=== PATIENT | male | born 1970 | race Caucasian/White ===

== ENCOUNTER 2019-11-10 20:00 | Outpatient (CLI) | payer MEDICAID, SELFPAY | END 2019-11-10 20:01 | disposition home or self-care (01) | LOC: SLEEP 11-11 10:08 | PROVIDERS: Visit Provider Nurse Practitioner Family | DX: G47.33 Obstructive sleep apnea (adult) (pediatric) (principal); G47.10 Hypersomnia, unspecified; Z68.41 Body mass index [BMI] 40.0-44.9, adult | CPT/HCPCS: 95810; 95811 ==

== ENCOUNTER → 2020-03-16 14:15 | Outpatient (BNVA) | payer MEDICAID, SELFPAY | PROVIDERS: Visit Provider Nurse Practitioner Family | DX: M54.2 Cervicalgia (principal); M47.812 Spondylosis without myelopathy or radiculopathy, cervical region | CPT/HCPCS: 72040 ==

== ENCOUNTER → 2020-04-27 13:45 | Outpatient (BNVA) | payer MEDICAID, SELFPAY | PROVIDERS: Visit Provider Nurse Practitioner Family | DX: M79.662 Pain in left lower leg (principal); S81.842A Puncture wound with foreign body, left lower leg, initial encounter; W28.XXXA Contact with powered lawn mower, initial encounter; Z68.41 Body mass index [BMI] 40.0-44.9, adult; F17.220 Nicotine dependence, chewing tobacco, uncomplicated | CPT/HCPCS: 73590 ==

== ENCOUNTER 2020-12-02 14:53 | Emergency (ER) | payer MEDICAID, SELFPAY ==
[2020-12-02 15:05] VITALS: BP 172/102; PULSE 84; RESP 20; TEMP 36.7; O2SAT 98; BMI 43.0
--- NOTE | 2020-12-02 15:23 | XR_ITS ---
WS: [id number] Cervical spine, 4 views, 12/02/2020 Clinical Data: left side neck and shoulder pain with ROM Comparison: Cervical spine, 03/16/2020. Findings: No compression fractures are seen. No subluxation is seen. There is disc space narrowing at C3-C4, C4-C5, C5-C6 and C6-C7. There is anterior longitudinal ligament and anterior spur formation f rom C3 to through C7. There is no prevertebral soft tissue swelling. The odontoid is unremarkable. Th e soft tissues of the neck and the lung apices are normal. XR/XR cervical spine 3V* [id number] Impression: 1. Mild degenerative disc narrowing from C3-C4 through C6-C7. 2. 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
--- NOTE | 2020-12-02 15:32 | ED_ITS ---
HPI - General Adult General: Chief complaint: General Medical Stated complaint: SHARP PAIN IN L SIDE NECK GOING TO L SHOULDER History of Present Illness: HPI narrative: Patient been having pain left side neck left shoulder the last few days. Hurts with range of motion denies any injury has a history of neck problems. Patient states the pain hurts worse in his left shoulder when he rotates his head to the right side hurts down to the bicep area at times also. Denies any tingling or numbness down extremities denies any shortness of breath chest pain or chest pressure. Onset (ago): day(s) Location: neck, left and upper extremity Radiation: non-radiation, neck and extremity Severity: mild Severity scale (1-10): 3 Quality: aching and sharp Pain Consistency: intermittent Relieving factors: immobilization Exacerbating factors: movement Associated symptoms: Reports no associated symptoms; Deny chest pain, dyspnea, headache(s), nausea, rash or vomiting Review of Systems Const: Denies: fever(s), chills or body aches Eyes: Denies: change in vision or blurry vision ENMT: Denies: throat pain or nasal congestion Card: Denies: chest pain or dyspnea on exertion Resp: Denies: dyspnea, productive cough or non-productive cough GI: Denies: abdominal pain, nausea or vomiting : Denies: difficulty urinating Musc: Reports: neck pain (Left side) and extremity pain (Left shoulder) Skin/Breast: Denies: rash Neuro: Denies: headache(s) Psych: Denies: anxiety or depression Kian/Lymph: Denies: easy bruising PFS ED PFSH: Social History (Updated 10/16/20 @ 17:56 by Tommy Foy LPN) Smoking and tobacco status: current every day smoker smokeless tobacco Alcohol intake: never Physical Exam Const: COMMON NORMALS: no acute distress, average body habitus and patient oriented x3 HENMT: COMMON NORMALS: normocephalic HEAD & SCALP: normal to inspection and normocephalic FACE & SINUS: normal facial exam Eye: COMMON NORMALS: conjunctivae normal GENERAL EYE: appearance normal, both eyes and all related structures CONJUNCTIVA: Yes conjunctivae normal Neck/C-Spine: COMMON NORMALS: no JVD Chest: COMMONS NORMALS: normal inspection of the chest Resp: COMMON NORMALS: normal respiratory effort and clear to auscultation bilaterally AUSCULTATION: clear to auscultation bilaterally Cardio: COMMON NORMALS: no JVD, regular rate and regular rhythm RATE: regular rate RHYTHM: regular rhythm GI: COMMON NORMALS: Normal to inspection, nondistended, normoactive bowel sounds present Extremity: COMMON NORMALS: normal to inspection NARRATIVE EXTREMITY EXAM: Pain with palpation to the left trapezius area left shoulder pain with range of motion. Hurts when he turns his head to the right makes it her left side. Neuro: COMMON NORMALS: patient oriented x3 Course Vital Signs: Vital signs: Vital Signs Temperature 98.1 F 12/02/20 15:05 Pulse Rate 84 12/02/20 15:05 Respiratory Rate 20 H 12/02/20 15:05 Blood Pressure 172/102 12/02/20 15:05 Pulse Oximetry 98 12/02/20 15:05 Discharge Plan Discharge Prescriptions: No Action atorvastatin 40 mg tablet 40 mg PO DAILY RF: 0 fluticasone propionate 50 mcg/actuation blister with device 1 inh INHALATION BID RF: 0 Flovent HFA 110 mcg/actuation HFA aerosol inhaler 2 puff INHALATION BID RF: 0 levocetirizine 5 mg tablet 5 mg PO DAILY RF: 0 losartan 100 mg tablet 100 mg PO DAILY RF: 0 cyclobenzaprine 10 mg tablet 10 mg PO .Once a day PRN (Reason: muscle spasm) Qty: 7 RF: 0 povidone-iodine [Betadine Swabsticks] 10 % swab 1 applic TOPICAL ONCE Qty: 1 RF: 0 bacitracin 500 unit/gram packet 1 applic TOPICAL ONCE Qty: 1 RF: 0 lidocaine (PF) 20 mg/mL (2 %) solution 20 mg Infiltration ONCE Qty: 2 RF: 0 amoxicillin-pot clavulanate [Augmentin] 875-125 mg tablet 1 tab PO BID 10 Days Qty: 20 RF: 0 Coding Level of Care Code ED Home Health Outreach Coordinator for Mariaelena Krishnamurthy
[2020-12-02] MEDS: ketorolac 60 mg/2 mL INJ IM (16:11)
[2020-12-02 16:22] VITALS: BP 132/77; PULSE 76; RESP 20; O2SAT 98
[2020-12-02 16:23] VITALS: BP 132/77; PULSE 76; RESP 20; O2SAT 98
== END 2020-12-02 16:28 | disposition home or self-care (01) ==
PROVIDERS: Emergency Provider Nurse Practitioner Family; PCP Nurse Practitioner Family
DX: M54.2 Cervicalgia (principal); F17.210 Nicotine dependence, cigarettes, uncomplicated
CPT/HCPCS: 72040; 96372; 99283; J1885

== ENCOUNTER 2022-07-13 10:59 | Outpatient (CLI) | payer MEDICAID, SELFPAY ==
--- NOTE | 2022-07-13 12:21 | XR_ITS ---
WS: [id number] Lumbar spine with flexion, extension, and neutral lateral, 07/13/2022 Clinical Data: BACK PAIN, LUMBAR Comparison: Lumbar spine, 07/13/2010. Findings: No compression fractures are seen. There is anterior subluxation of L4 and L5 of 0.2 cm. No disc spac e narrowing is seen. There is anterior osteophyte formation L1-L4. No limitation of motion or change in subluxation is seen. XR/XR lumbar spine f/e only [id number] Impression: 1. Osteoarthritis L1-L4. 2.. No limitation of motion or change in subluxation on flexion or extension. 3. Subluxation of 0.2 cm of L4 on L5.
== END 2022-07-13 11:00 | disposition home or self-care (01) ==
LOC: RAD 11:10
PROVIDERS: PCP Nurse Practitioner Family; Visit Provider Nurse Practitioner Family
DX: M47.816 Spondylosis without myelopathy or radiculopathy, lumbar region; S33.140A Subluxation of L4/L5 lumbar vertebra, initial encounter
CPT/HCPCS: 72120

== ENCOUNTER → 2022-07-24 13:05 | Outpatient (BNVA) | payer MEDICAID, SELFPAY | PROVIDERS: PCP Nurse Practitioner Family; Visit Provider Orthopaedic Surgery | DX: M43.16 Spondylolisthesis, lumbar region (principal) | CPT/HCPCS: 72020 ==

== ENCOUNTER 2022-09-19 06:00 | Outpatient (RCR) | payer MEDICAID, SELFPAY | END 2022-09-22 23:59 | disposition home or self-care (01) | LOC: TPT 06:00 | PROVIDERS: PCP Nurse Practitioner Family; Visit Provider Orthopaedic Surgery | DX: M54.9 Dorsalgia, unspecified (principal); G89.29 Other chronic pain | CPT/HCPCS: 97162 ==

== ENCOUNTER 2022-09-23 06:00 | Outpatient (RCR) | payer MEDICAID, SELFPAY | END 2022-10-23 23:59 | disposition home or self-care (01) | LOC: TPT 06:00 | PROVIDERS: PCP Nurse Practitioner Family; Visit Provider Orthopaedic Surgery | DX: M54.9 Dorsalgia, unspecified (principal); G89.29 Other chronic pain | CPT/HCPCS: 97110 ==

== ENCOUNTER 2022-10-24 06:00 | Outpatient (RCR) | payer MEDICAID, SELFPAY | END 2022-11-20 23:59 | disposition home or self-care (01) | LOC: TPT 06:00 | PROVIDERS: PCP Nurse Practitioner Family; Visit Provider Orthopaedic Surgery | DX: M54.9 Dorsalgia, unspecified (principal); G89.29 Other chronic pain | CPT/HCPCS: 97110 ==

== ENCOUNTER 2022-11-21 06:00 | Outpatient (RCR) | payer MEDICAID, SELFPAY | END 2022-12-05 23:59 | disposition home or self-care (01) | LOC: TPT 06:00 | PROVIDERS: PCP Nurse Practitioner Family; Visit Provider Orthopaedic Surgery | DX: M54.9 Dorsalgia, unspecified (principal); G89.29 Other chronic pain | CPT/HCPCS: 97110 ==

== ENCOUNTER 2023-03-14 09:35 | Emergency (ER) | payer MEDICAID, SELFPAY ==
--- NOTE | 2023-03-14 09:46 | ECG_ITS ---
[facility] Test Date: 2023-03-14 Pat Name: Og Lopez Department: Room: Gender: Male Tax Expert: : 1970 Requested By: Armando Freire Order Number: [id number] Abhay MD: Magali Glez M.D. Measurements Intervals [place] Rate: 68 P: 66 DE: 186 QRS: 56 QRSD: 90 T: 65 QT: 384 QTc: 409 Interpretive Statements SINUS RHYTHM NONSPECIFIC T-WAVE ABNORMALITY No previous ECG available for comparison Electronically Signed On 03-14-2023 15:59:49 CDT by Magali Glez M.D. [id number] f
[2023-03-14 09:47] VITALS: BP 151/92; PULSE 72; RESP 18; TEMP 37; O2SAT 97; BMI 47.3
--- NOTE | 2023-03-14 10:02 | ED_ITS ---
HPI - Dizziness General: Chief Complaint: Dizziness Stated Complaint: Dizzy Time Seen by Provider: 03/14/23 09:40 Source: patient Mode of arrival: ambulatory History of Present Illness: HPI Narrative: 52-year-old male presents emergency room with complaints of dizziness. Is worse when he looks down or moves his head. If he sits very still its fine he has no symptoms. Symptoms began while he was in [employer] walking around and had progressively worsening symptoms to the point that he presented to the ER. No recent head trauma he is not on any anticoagulation. He has no difficulty with speech or swallowing no nausea or vomiting denies headache. No previous history of inner ear problems or disease. No drainage from the ears or pain. MD elicited complaint: vertigo Onset (ago): minute(s) Severity: mild Exacerbating factors: nothing Relieving factors: nothing Associated symptoms: Denies abnormal vaginal bleeding, change in hearing, chest pain, chills, cough, diaphoresis, ear discharge, ear pressure, fevers/chills, headache(s), malaise, nausea, nasal congestion, palpitations, rash, short of breath, syncope, tinnitus, vomiting or weakness Associated neuro symptoms: Deny confusion, difficulty speaking, dysphagia, diplopia, extremity weakness, facial numbness, facial weakness, gait changes, numbness in extremities or visual changes Review of Systems Const: Reports: fever(s); Denies: chills, fatigue, malaise or diaphoresis ENMT: Denies: ear discharge, change in hearing, tinnitus or nasal congestion Card: Denies: chest pain, palpitations or syncope Resp: Denies: dyspnea or productive cough GI: Denies: abdominal pain, nausea, vomiting or dysphagia Neuro: Denies: headache(s), numbness in extremities or confusion PENDING SALE TO [facility] ED PFSH: Medical History Asthma Eustachian tube dysfunction Morbid obesity with BMI of 45.0-49.9, adult Nasal congestion Surgical History History of appendectomy Social History Smoking and tobacco status: former smoker Second hand smoke exposure: Yes Smoking risk assessment/counseling performed?: No Alcohol intake: never Desire information about alcohol rehabilitation?: No Counseling given: No Substance/Drug Use: never Desire information about substance/drug rehabilitation?: No Counseling given: No Physical Exam Const: GENERAL APPEARANCE: cooperative and comfortable ORIENTATION/CONSCIOUSNESS: Yes awake, Yes oriented to person, Yes oriented to place and Yes oriented to time HENMT: COMMON NORMALS: normocephalic, atraumatic and hearing grossly normal bilaterally HEAD & SCALP: normocephalic and atraumatic Resp: COMMON NORMALS: normal respiratory effort, No retractions, No use of accessory muscles and clear to auscultation bilaterally AUSCULTATION: clear to auscultation bilaterally Cardio: COMMON NORMALS: regular rate, regular rhythm and No murmurs present (Cardio) RATE: regular rate RHYTHM: regular rhythm GI: COMMON NORMALS: Soft to palpation and No hepatosplenomegaly present AUSCULTATION: Yes normoactive bowel sounds PALPATION: Yes Soft to palpation, No Tenderness to palpation present (GI), No Guarding due to palpation present (GI) and Yes No hepatosplenomegaly present Extremity: COMMON NORMALS: normal to inspection, capillary refill normal, no clubbing, cyanosis or edema, no calf tenderness and no pedal edema Neuro: SENSORIUM/ORIENTATION: Yes oriented to person, Yes oriented to place and Yes oriented to time Skin: COMMON NORMALS: no rashes or lesions noted GENERAL SKIN EXAM: no rashes or lesions noted Course Vital Signs: Vital signs: Vital Signs Temperature 98.6 F 03/14/23 09:47 Pulse Rate 65 03/14/23 11:50 Respiratory Rate 15 03/14/23 11:50 Blood Pressure 114/80 03/14/23 11:50 Pulse Oximetry 95 03/14/23 11:50 Oxygen Delivery Me thod Room Air 03/14/23 09:47 MDM - Dizziness Medical Decision Making Symptoms reproducible with head movement. Resolved with meclizine. Patient is feeling much better discharged home with p.o. meclizine and follow-up as needed return if is worsening problems. Medical Records I reviewed the patient's medical records. Lab Data I reviewed the patient's lab results. 03/14/23 10:04 03/14/23 10:04 Laboratory Results WBC 5.7 10^3/uL (4.0-10.0) 03/14/23 10:04 RBC 4.15 10^6/uL (4.1-5.3) 03/14/23 10:04 Hgb 12.8 g/dL (11.7-16.6) 03/14/23 10:04 Hct 38.3 % (42.0-52.0) L 03/14/23 10:04 MCV 92.3 fl (80-94) 03/14/23 10:04 MCH 30.8 pg (28.0-34.0) 03/14/23 10:04 MCHC 33.4 g/dL (30.0-36.0) 03/14/23 10:04 RDW 13.8 % (12.1-15.1) 03/14/23 10:04 Plt Count 193 10^3/cmm (130-400) 03/14/23 10:04 MPV 8.9 fL (7.4-10.4) 03/14/23 10:04 Neut % (Auto) 65.4 % 03/14/23 10:04 Lymph % (Auto) 21.8 % 03/14/23 10:04 [place] % (Auto) 8.4 % 03/14/23 10:04 Eos % (Auto) 3.7 % 03/14/23 10:04 Baso % (Auto) 0.5 % 03/14/23 10:04 Neut # (Auto) 3.73 10^3/uL (1.8-7.7) 03/14/23 10:04 Lymph # (Auto) 1.2 10^3/uL (0.8-4.8) 03/14/23 10:04 [place] # (Auto) 0.5 10^3/uL (0.2-0.9) 03/14/23 10:04 Eos # (Auto) 0.2 10^3/uL (0.0-0.8) 03/14/23 10:04 Baso # (Auto) 0.0 10^3/uL (0.0-0.1) 03/14/23 10:04 Nucleated RBC % (auto) 0 % 03/14/23 10:04 Nucleated RBCs # 0.0 /100WBC 03/14/23 10:04 Sodium 138 mmol/L (136-145) 03/14/23 10:04 Potassium 4.2 mmol/L (3.5-5.1) 03/14/23 10:04 Chloride 105 mmol/L (98-107) 03/14/23 10:04 Carbon Dioxide 22 mmol/L (22-29) 03/14/23 10:04 Anion Gap 15.2 (5-19) 03/14/23 10:04 BUN 8 mg/dL (6-20) 03/14/23 10:04 Creatinine 1.0 mg/dL (0.7-1.2) 03/14/23 10:04 GFR Calculation 79.1 mL/min (90-130) L 03/14/23 10:04 Glucose 101 mg/dL (65-115) 03/14/23 10:04 Calculated Osmolality 284 mOsm/kg (285-295) L 03/14/23 10:04 Calcium 9.0 mg/dL (8.5-10.5) 03/14/23 10:04 Discharge Plan Discharge Patient Disposition: Home Clinical Impression: Benign paroxysmal positional vertigo Condition: Stable Prescriptions: New meclizine 25 mg tablet 25 mg PO QID PRN (Reason: dizziness) Qty: 14 0RF No Action atorvastatin 40 mg tablet 40 mg PO BEDTIME losartan 100 mg tablet 100 mg PO BEDTIME meloxicam 7.5 mg tablet 7.5 mg PO BID PRN (Reason: Pain) multivitamin Tablet 1 tab PO QAM Advair Diskus 250-50 mcg/dose blister with device 1 inh INHALATION BID Flonase Allergy Relief 50 mcg/actuation spray,suspension 2 spray intranasal DAILY PRN (Reason: Allergy Symptoms) Rx Instructions: administer into each nostril Discharge Orders: Discharge ED (Routine); Ordered 03/14/23 Ordered By: Armando Paniagua Referrals: Martha Melissa FNP [Primary Care Provider] - Discharge Diet: Usual diet Discharge Activity: Increase activity as tolerated Patient Instructions: Benign Paroxysmal Positional Vertigo (ED), Opioid Safety, Pain Management Coding Level of Care Code ED Sweet Pickled Fruit Maker for Mariaelena Krishnamurthy
[2023-03-14 10:11] VITALS: BP 145/95; BP 157/91; BP 163/96; PULSE 69; PULSE 89; PULSE 93
[2023-03-14 10:11] LABS: Basophils % 0.5 %; Eosinophils # 0.2 10^3/uL (0.0-0.8); Eosinophils % 3.7 %; Hematocrit 38.3 % (42.0-52.0); Hemoglobin 12.8 g/dL (11.7-16.6); Lymphocytes # 1.2 10^3/uL (0.8-4.8); Lymphocytes % 21.8 %; Mean Corpuscular HGB Conc 33.4 g/dL (30.0-36.0); Mean Corpuscular Hemoglobin 30.8 pg (28.0-34.0); Mean Corpuscular Volume 92.3 fl (80-94); Mean Platelet Volume 8.9 fL (7.4-10.4); Monocytes # 0.5 10^3/uL (0.2-0.9); Monocytes % 8.4 %; Neutrophils # 3.73 10^3/uL (1.8-7.7); Neutrophils % 65.4 %; Nucleated Red Blood Cells % 0 %; Platelet Count 193 10^3/cmm (130-400); Red Blood Count 4.15 10^6/uL (4.1-5.3); Red Cell Distribution Width 13.8 % (12.1-15.1); White Blood Count 5.7 10^3/uL (4.0-10.0)
[2023-03-14] MEDS: meclizine 25 mg tablet 50 MG PO (10:14)
[2023-03-14 10:31] LABS: Blood Urea Nitrogen 8 mg/dL (6-20); Carbon Dioxide 22 mmol/L (22-29); Chloride 105 mmol/L (98-107); Glomerular Filtration Rate 79.1 mL/min (90-130); Glucose 101 mg/dL (65-115); Osmolality Calculated 284 mOsm/kg (285-295); Sodium 138 mmol/L (136-145)
[2023-03-14 10:34] LABS: Anion Gap 15.2 (5-19); Potassium 4.2 mmol/L (3.5-5.1)
[2023-03-14 11:28] VITALS: BP 157/68; PULSE 74; RESP 10; O2SAT 96
[2023-03-14 11:50] VITALS: BP 114/80; PULSE 65; RESP 15; O2SAT 95
== END 2023-03-14 11:51 | disposition home or self-care (01) ==
PROVIDERS: Emergency Provider Family Medicine; PCP Nurse Practitioner Family
DX: H81.10 Benign paroxysmal vertigo, unspecified ear (principal); Z87.891 Personal history of nicotine dependence
CPT/HCPCS: 80048; 85025; 93005; 99284; J8597

== ENCOUNTER 2024-04-18 16:40 | Emergency (ER) | payer MEDICAID, SELFPAY ==
[2024-04-18 16:51] VITALS: PULSE 82; RESP 20; TEMP 36.7; O2SAT 96
--- NOTE | 2024-04-18 17:01 | W.ED.BACK ---
HPI - Back Pain/Injury General: Chief Complaint: Back Pain/Injury Stated Complaint: back pain Time Seen by Provider: 04/18/24 17:00 Source: patient Mode of arrival: ambulatory Limitations: no limitations History of Present Illness: Patient is a nice 53-year-old male who presents to ED today with a complaint of back pain. He states about 3 days ago he began noticing pain to the right lower side of his back. He states the pain has since moved over and is now affecting the left lower back. He states he is not having any radicular discomforts down into his buttocks, groin, or lower extremities. He is not having any abdominal pain. No chest pain. Denies known injury or trauma. States he did do some heavy lifting/helping a friend move but that was 2 weeks before pain started. He states pain was more of a gradual onset. He states pain is worse with movement. He feels like lying down somewhat alleviates the discomfort although states it never fully goes away. He has not treated pain with anything at home apart from Biofreeze. elicited complaint: back pain Onset (ago): day(s) Timing: constant Severity: moderate Similar Symptoms Previously: No Location: lumbar spine, thoracic spine, right lower back and left lower back Radiation: none Exacerbating factors: movement Relieving factors: other (lying down ) Associated symptoms: Deny abdominal pain, chills, change in bowel habits, difficulty walking, dysuria, fatigue, fever(s), hematuria, nausea or syncope Work related injury: No Review of Systems Const: Denies: fever(s), chills, body aches, fatigue or malaise Card: Denies: chest pain, lightheadedness, syncope or pre-syncope Resp: Denies: dyspnea GI: Denies: abdominal pain, nausea or change in bowel habits : Denies: flank pain, difficulty urinating, dysuria or hematuria Musc: Reports: back pain; Denies: neck pain, extremity pain, extremity swelling, joint pain or joint swelling Skin/Breast: Denies: rash Neuro: Denies: headache(s), numbness in extremities, weakness in extremities, sensory changes or difficulty walking PFS ED PFSH: Medical History Morbid obesity with BMI of 45.0-49.9, adult Eustachian tube dysfunction Nasal congestion Asthma Surgical History History of appendectomy Social History Smoking and tobacco/nicotine status: former use of tobacco/nicotine Second hand smoke exposure: Yes Alcohol intake: never Substance/Drug Use: never Physical Exam Const: COMMON NORMALS: no acute distress, patient oriented x3, no limitations, alert and well nourished GENERAL APPEARANCE: cooperative NUTRITIONAL APPEARANCE: obese morbidly obese (BMI 45.9) ORIENTATION/CONSCIOUSNESS: Yes awake, Yes oriented to person, Yes oriented to place and Yes oriented to time Neck/C-Spine: COMMON NORMALS: full ROM CERVICAL SPINE: Yes cervical ROM normal and No Cervical spine tenderness Resp: COMMON NORMALS: normal respiratory effort and clear to auscultation bilaterally AUSCULTATION: clear to auscultation bilaterally Cardio: COMMON NORMALS: regular rate and regular rhythm RATE: regular rate RHYTHM: regular rhythm GI: COMMON NORMALS: Normal to inspection, nondistended, normoactive bowel sounds present, non-tender and no masses : COMMON NORMALS: Yes no CVA tenderness BLADDER/KIDNEY EXAM: Yes no CVA tenderness Back/Pelvis: COMMON NORMALS: no CVA tenderness, thoracic and lumbar spine normal to inspection and straight leg raise negative bilaterally THORACIC SPINE/UPPER BACK: No thoracic spinal tenderness and No paraspinal muscle tenderness LUMBAR SPINE/LOWER BACK: Yes lumbar ROM normal, Yes paraspinal muscle tenderness, No paraspinal muscle spasm and Yes straight leg raise negative bilaterally PELVIS: Yes buttocks normal SACROILIAC JOINTS: Yes SI joints normal SACRUM: no tenderness COCCYX: no tenderness OTHER: somewhat reproducible pain throughout his lower back Extremity: COMMON NORMALS: normal to inspection, full ROM, capillary refill normal, no joint enlargement, no clubbing, cyanosis or edema, no calf tenderness and no pedal edema GENERAL: Yes normal exam except as noted Neuro: COMMON NORMALS: patient oriented x3, moves all extremities, no focal motor deficits, no sensory deficits noted and gait normal SENSORIUM/ORIENTATION: Yes alert, Yes oriented to person, Yes oriented to place and Yes oriented to time MOTOR EXAM: 5/5 motor strength present throughout Course Vital Signs: Vital signs: Vital Signs Temperature 98.1 F 04/18/24 16:51 Pulse Rate 63 04/18/24 17:53 Respiratory Rate 17 04/18/24 17:53 Blood Pressure 121/74 04/18/24 17:53 Pulse Oximetry 94 04/18/24 17:53 Oxygen Delivery Me thod Room Air 04/18/24 17:53 MDM - Back Pain/Injury Medical Decision Making Patient here for complaints of 3 days of lower back pain. No known injury or trauma. Pain is somewhat reproducible. He has no red flag symptoms on history or physical examination to suggest more ominous etiology such as aneurysm/dissection. Strict return to precautions were given. Otherwise I would like patient to follow-up with primary care next week if symptoms or not improving. He did feel better after medications given here. Medical Records I reviewed the patient's medical records. No radiology studies performed this visit Discharge Plan Discharge Patient Disposition: Home Clinical Impression: Nonspecific low back pain Condition: Stable Prescriptions: New methocarbamol 500 mg tablet 1,000 mg PO Q8H Qty: 30 0RF ibuprofen 800 mg tablet 800 mg PO Q8H PRN (Reason: pain) Qty: 20 0RF Medrol (John) 4 mg tablets,dose pack See Rx Instructions .ROUTE .COMPLEX Qty: 21 0RF Rx Instructions: orally per package directions Discontinued meloxicam 7.5 mg tablet 7.5 mg PO BID PRN (Reason: Pain) prednisone 20 mg tablet 60 mg PO DAILY 5 Days Qty: 15 0RF No Action atorvastatin 40 mg tablet 40 mg PO BEDTIME losartan 100 mg tablet 100 mg PO BEDTIME albuterol sulfate 90 mcg/actuation HFA aerosol inhaler 2 inh inhalation Q6H PRN (Reason: shortness of breath or wheezing) Qty: 6.7 0RF multivitamin Tablet 1 tab PO QAM Advair Diskus 250-50 mcg/dose blister with device 1 inh INHALATION BID Flonase Allergy Relief 50 mcg/actuation spray,suspension 2 spray intranasal DAILY PRN (Reason: Allergy Symptoms) Rx Instructions: administer into each nostril meclizine 25 mg tablet 25 mg PO QID PRN (Reason: dizziness) Qty: 14 0RF Discharge Orders: Discharge ED (Routine); Ordered 04/18/24 Ordered By: Abril Metcalf Referrals: Martha Melissa FNP [Primary Care Provider] - Activity Restrictions/Additional Instructions: As we discussed I would like you to return to the emergency department for worsening back pain, abdominal pain, or chest pain, any numbness/tingling/loss of sensation to your arms or legs, lightheadedness/dizziness/passing out, or any other concerns you may have. Otherwise I would like you to follow-up with your primary care provider next week. Coding Level of Care Code ED Branch Service Representative for Mariaelena Krishnamurthy
[2024-04-18] MEDS: dexamethasone 10 mg/mL INJ IM (17:17)
[2024-04-18] MEDS: ketorolac 60 mg/2 mL INJ IM (17:17)
[2024-04-18] MEDS: orphenadrine 30 mg/mL Inj 2 mL 60 MG IM (17:17)
[2024-04-18 17:53] VITALS: BP 121/74; PULSE 63; RESP 17; O2SAT 94
== END 2024-04-18 17:59 | disposition home or self-care (01) ==
PROVIDERS: Emergency Provider Physician Assistant; PCP Nurse Practitioner Family
DX: M54.50 Low back pain, unspecified (principal); Z87.891 Personal history of nicotine dependence
CPT/HCPCS: 96372; 99284; J1100; J1885; J2360

== ENCOUNTER 2024-12-12 18:12 | Emergency (ER) | payer MEDICAID, SELFPAY ==
[2024-12-12 18:14] VITALS: BP 157/81; PULSE 95; RESP 18; TEMP 36.4; O2SAT 99; BMI 47.3
[2024-12-12 18:30] VITALS: BP 132/64; PULSE 87; O2SAT 97
[2024-12-12] MEDS: orphenadrine 30 mg/mL Inj 2 mL 60 MG IM (19:21)
[2024-12-12] MEDS: ketorolac 60 mg/2 mL INJ IM (19:21)
--- NOTE | 2024-12-12 19:25 | PC.NURSE ---
Pt sent home with 2tabs Oxycodone per Dr Agosto's order.
--- NOTE | 2024-12-12 19:29 | W.ED.BACK ---
HPI - Back Pain/Injury General: Chief Complaint: Back Pain/Injury Stated Complaint: sneezed back pain into shoulderblades Time Seen by Provider: 12/12/24 18:26 History of Present Illness: 54-year-old male patient presenting with lower and mid back pain. He states that he wrenched his back during a stumbling episode a couple of days ago. Pain suddenly worsened today, when he sneezed, which radiated pain from his low back to his upper back. He still having significant pain. No pain in the legs. No anesthesia to the groin or legs. No loss of bowel or bladder control. Related Data Home Medications ?Medication ?Instructions ?Recorded ?Confirmed atorvastatin 40 mg tablet 40 mg PO BEDTIME 03/08/20 07/19/24 losartan 100 mg tablet 100 mg PO BEDTIME 03/08/20 07/19/24 fluticasone 250 mcg-salmeterol 50 1 inh inhalation BID 03/14/23 07/19/24 mcg/dose blistr powdr for inhalation (Advair Diskus) fluticasone propionate 50 2 spray intranasal DAILY PRN 03/14/23 07/19/24 mcg/actuation nasal Allergy Symptoms spray,suspension (Flonase Allergy Relief) multivitamin 1 tab PO QAM 03/14/23 07/19/24 Previous Rx's ?Medication ?Instructions ?Recorded meclizine 25 mg tablet 25 mg PO QID PRN dizziness #14 tabs 03/14/23 albuterol sulfate 90 mcg/actuation 2 inh inhalation Q6H PRN shortness 02/29/24 aerosol inhaler of breath or wheezing #6.7 grams amoxicillin 875 mg-potassium 1 tab PO BID 7 days #14 tabs 07/19/24 clavulanate 125 mg tablet prednisone 20 mg tablet 20 mg PO BID 5 days #10 tabs 07/19/24 ketorolac 10 mg tablet 10 mg PO TID PRN pain #10 tabs 12/12/24 methocarbamol 500 mg tablet 1,000 mg (2 x 500 mg) PO Q8H #30 12/12/24 tabs Allergies Allergy/AdvReac Type Severity Reaction Status Date / Time No Known Allergies Allergy Verified 07/19/24 13:58 [facility] ED PFSH: Medical History Morbid obesity with BMI of 45.0-49.9, adult Eustachian tube dysfunction Nasal congestion Asthma Surgical History History of appendectomy Social History Smoking and tobacco/nicotine status: former use of tobacco/nicotine (quit smoking about 1 year ago.) Second hand smoke exposure: Yes Alcohol intake: never Substance/Drug Use: never Physical Exam Const: COMMON NORMALS: no acute distress GENERAL APPEARANCE: cooperative; not ill appearing and not frail appearing HENMT: COMMON NORMALS: normocephalic, atraumatic and Normal external nose present HEAD & SCALP: normocephalic and atraumatic FACE & SINUS: normal facial exam and face symmetric NOSE: Normal external nose present Eye: COMMON NORMALS: Equal, round and reactive pupils present and EOMs intact bilaterally PUPIL: Yes Equal, round and reactive pupils present Neck/C-Spine: GENERAL: Yes trachea midline Chest: CHEST: Yes Symmetrical chest wall rise Resp: COMMON NORMALS: normal respiratory effort, No retractions, No use of accessory muscles and clear to auscultation bilaterally AUSCULTATION: clear to auscultation bilaterally Cardio: COMMON NORMALS: regular rate and regular rhythm RATE: regular rate RHYTHM: regular rhythm GI: COMMON NORMALS: Normal to inspection, nondistended, normoactive bowel sounds present Back/Pelvis: OTHER: Tenderness to palpation in the midline at L5-S1. Negative straight leg raise test bilaterally. No saddle anesthesia. Some slight muscle spasm in the left thoracolumbar musculature. Extremity: COMMON NORMALS: no pedal edema Neuro: SIERRA COMA SCALE: document GCS findings Sierra coma scale eye opening: Spontaneous Sierra coma scale verbal response: Orientated Sierra coma scale motor response: Obey commands Sierra coma scale total score: 15 SENSORY EXAM: Yes extremities (intact) Psych: COMMON NORMALS: speech normal SPEECH: Yes normal speech Skin: COMMON NORMALS: no rashes or lesions noted GENERAL SKIN EXAM: no rashes or lesions noted Course Vital Signs: Vital signs: Vital Signs Temperature 97.6 F 12/12/24 18:14 Pulse Rate 92 12/12/24 19:46 Respiratory Rate 18 12/12/24 19:46 Blood Pressure 123/74 12/12/24 19:46 Pulse Oximetry 92 12/12/24 19:46 Oxygen Delivery Me thod Room Air 12/12/24 18:30 MDM - Back Pain/Injury Medical Decision Making Patient given Toradol and Norflex IM here. He will take pain medication at home. Medications for symptoms at home. Outpatient follow-up. No radiology studies performed this visit Discharge Plan Discharge Patient Disposition: Home Clinical Impression: Strain of lumbar region Condition: Stable Prescriptions: New ketorolac 10 mg tablet 10 mg PO TID PRN (Reason: pain) Qty: 10 0RF Continued prednisone 20 mg tablet 20 mg PO BID 5 Days Qty: 10 0RF methocarbamol 500 mg tablet 1,000 mg PO Q8H Qty: 30 0RF Discontinued ibuprofen 800 mg tablet 800 mg PO Q8H PRN (Reason: pain) Qty: 20 0RF No Action atorvastatin 40 mg tablet 40 mg PO BEDTIME losartan 100 mg tablet 100 mg PO BEDTIME albuterol sulfate 90 mcg/actuation HFA aerosol inhaler 2 inh inhalation Q6H PRN (Reason: shortness of breath or wheezing) Qty: 6.7 0RF amoxicillin-pot clavulanate 875-125 mg tablet 1 tab PO BID 7 Days Qty: 14 0RF multivitamin Tablet 1 tab PO QAM Advair Diskus 250-50 mcg/dose blister with device 1 inh INHALATION BID Flonase Allergy Relief 50 mcg/actuation spray,suspension 2 spray intranasal DAILY PRN (Reason: Allergy Symptoms) Rx Instructions: administer into each nostril meclizine 25 mg tablet 25 mg PO QID PRN (Reason: dizziness) Qty: 14 0RF Discharge Orders: Discharge ED (Routine); Ordered 12/12/24 Ordered By: Eric Agosto Patient Instructions: Opioid Safety, Pain Management Activity Restrictions/Additional Instructions: Return for pain radiating into the legs, significant weakness, loss of your control of your urine or bowel movements, other concerning symptoms. See your doctor next week. Medication as needed for pain and muscle spasm. Print Language: Yakut Coding Level of Care Code ED [employer] Insurance Agent for Mariaelena Krishnamurthy
[2024-12-12 19:46] VITALS: BP 123/74; PULSE 92; RESP 18; O2SAT 92
== END 2024-12-12 19:47 | disposition home or self-care (01) ==
PROVIDERS: Emergency Provider Emergency Medicine
DX: S39.012A Strain of muscle, fascia and tendon of lower back, initial encounter (principal); Z87.891 Personal history of nicotine dependence; X58.XXXA Exposure to other specified factors, initial encounter
CPT/HCPCS: 96372; 99284; J1885; J2360

== ENCOUNTER 2024-12-14 17:22 | Emergency (ER) | payer MEDICAID, SELFPAY ==
[2024-12-14 17:23] VITALS: BP 150/86; PULSE 92; TEMP 37.1; O2SAT 98; BMI 47.3
--- NOTE | 2024-12-14 18:18 | XRR_ITS ---
PROCEDURE INFORMATION: Exam: XR Lumbosacral Spine Exam date and time: 12/14/2024 6:52 PM Age: 54 years old Clinical indication: Low back pain TECHNIQUE: Imaging protocol: Radiologic exam of the lumbosacral spine. Views: 2 or 3 views. COMPARISON: CR XR lumbar spine 1V [id number] 07/24/2022 1:10 PM FINDINGS: Bones/joints: Lower thoracic spine severe disc space narrowing and productive endplate changes. Grade 1 anterolisthesis of L4 relative to L5 of 3.4 mm. Similar to prior exams. Multilevel [id number] productive degenerative endplate changes along with mild to moderate posterior disc space narrowing throughout the lumbar spine. Soft tissues: Unremarkable. Organs: Cholelithiasis. XR/XR lumbar spine 2-3V* [id number] IMPRESSION: 1. Lower thoracic spine severe disc space narrowing and productive endplate changes. 2. Grade 1 anterolisthesis of L4 relative to L5 of 3.4 mm. Similar to prior exams. 3. Multilevel [id number] productive degenerative endplate changes along with mild to moderate posterior disc space narrowing throughout the lumbar spine. 4. Cholelithiasis.
--- NOTE | 2024-12-14 20:41 | W.ED.BACK ---
HPI - Back Pain/Injury General: Chief Complaint: Back Pain/Injury Stated Complaint: back pain Time Seen by Provider: 12/14/24 19:51 Source: patient Mode of arrival: ambulatory Limitations: no limitations History of Present Illness: 54-year-old male who states that he has had a history of back issues in the past. States he had strained his lower back 1 week ago he states he has been having pain since then. States pain is a sharp pain paraspinal nerves low back. States is worse with walking improved with rest he denies any bowel or bladder incontinence he rates the pain a 4 out of 10 currently denies any fever Associated symptoms: Deny abdominal pain, chills, fever(s), nausea or vomiting Related Data Home Medications ?Medication ?Instructions ?Recorded ?Confirmed atorvastatin 40 mg tablet 40 mg PO BEDTIME 03/08/20 07/19/24 losartan 100 mg tablet 100 mg PO BEDTIME 03/08/20 07/19/24 fluticasone 250 mcg-salmeterol 50 1 inh inhalation BID 03/14/23 07/19/24 mcg/dose blistr powdr for inhalation (Advair Diskus) fluticasone propionate 50 2 spray intranasal DAILY PRN 03/14/23 07/19/24 mcg/actuation nasal Allergy Symptoms spray,suspension (Flonase Allergy Relief) multivitamin 1 tab PO QAM 03/14/23 07/19/24 Previous Rx's ?Medication ?Instructions ?Recorded meclizine 25 mg tablet 25 mg PO QID PRN dizziness #14 tabs 03/14/23 albuterol sulfate 90 mcg/actuation 2 inh inhalation Q6H PRN shortness 02/29/24 aerosol inhaler of breath or wheezing #6.7 grams amoxicillin 875 mg-potassium 1 tab PO BID 7 days #14 tabs 07/19/24 clavulanate 125 mg tablet prednisone 20 mg tablet 20 mg PO BID 5 days #10 tabs 07/19/24 ketorolac 10 mg tablet 10 mg PO TID PRN pain #10 tabs 12/12/24 methocarbamol 500 mg tablet 1,000 mg (2 x 500 mg) PO Q8H #30 12/12/24 tabs hydrocodone 5 mg-acetaminophen 325 1 tab PO Q6H PRN pain #14 tabs 25 mg tablet methocarbamol 750 mg tablet 750 mg PO Q6H PRN spasms #20 tabs 12/14/24 Allergies Allergy/AdvReac Type Severity Reaction Status Date / Time No Known Allergies Allergy Verified 12/14/24 17:28 Review of Systems Const: Denies: fever(s), chills, body aches or change in appetite ENMT: Denies: throat pain or dental pain Card: Denies: chest pain Resp: Denies: dyspnea GI: Denies: abdominal pain, nausea, vomiting or diarrhea Musc: Reports: back pain; Denies: neck pain Skin/Breast: Denies: rash Neuro: Denies: headache(s) PFSH ED PFSH: Medical History Morbid obesity with BMI of 45.0-49.9, adult Eustachian tube dysfunction Nasal congestion Asthma Surgical History History of appendectomy Social History Smoking and tobacco/nicotine status: former use of tobacco/nicotine (quit smoking about 1 year ago.) Second hand smoke exposure: Yes Alcohol intake: never Substance/Drug Use: never Physical Exam Const: COMMON NORMALS: no acute distress, patient oriented x3 and healthy appearing HENMT: COMMON NORMALS: normocephalic and atraumatic HEAD & SCALP: normocephalic and atraumatic Eye: COMMON NORMALS: conjunctivae normal CONJUNCTIVA: Yes conjunctivae normal Neck/C-Spine: COMMON NORMALS: full ROM and supple Chest: COMMONS NORMALS: normal inspection of the chest Resp: COMMON NORMALS: normal respiratory effort Cardio: COMMON NORMALS: regular rate RATE: regular rate Back/Pelvis: OTHER: Paraspinal tenderness over lumbar spine no midline tenderness Extremity: COMMON NORMALS: normal to inspection and full ROM Neuro: COMMON NORMALS: patient oriented x3, moves all extremities and no focal motor deficits Psych: COMMON NORMALS: mental status grossly normal, Normal thought process present and cooperative THOUGHT PROCESS: Normal thought process present Skin: COMMON NORMALS: no rashes or lesions noted and no wounds GENERAL SKIN EXAM: no rashes or lesions noted Course Vital Signs: Vital signs: Vital Signs Temperature 98.7 F 12/14/24 17:23 Pulse Rate 90 12/14/24 21:00 Respiratory Rate 18 12/14/24 21:00 Blood Pressure 145/81 12/14/24 21:00 Pulse Oximetry 99 12/14/24 21:00 Oxygen Delivery Me thod Room Air 12/14/24 21:00 MDM - Back Pain/Injury Medical Decision Making Patient presents here with low back pain likely muscular nature imaging here showed no acute findings he has no signs of epidural abscess or cord compression we will place him on pain meds we will give him follow-up with Dr. Garcia he is to return if worsening. Medical Records I reviewed the patient's medical records. Labs Radiology Impressions Lumbar Spine X-Ray 12/14/24 18:18 IMPRESSION: 1. Lower thoracic spine severe disc space narrowing and productive endplate changes. 2. Grade 1 anterolisthesis of L4 relative to L5 of 3.4 mm. Similar to prior exams. 3. Multilevel [id number] productive degenerative endplate changes along with mild to moderate posterior disc space narrowing throughout the lumbar spine. 4. Cholelithiasis. All radiology interpretation(s) finalized by discharge Discharge Plan Discharge Patient Disposition: Home Clinical Impression: Strain of lumbar region Condition: Stable Prescriptions: New hydrocodone-acetaminophen 5-325 mg tablet 1 tab PO Q6H PRN (Reason: pain) Qty: 14 0RF methocarbamol 750 mg tablet 750 mg PO Q6H PRN (Reason: spasms) Qty: 20 0RF No Action atorvastatin 40 mg tablet 40 mg PO BEDTIME losartan 100 mg tablet 100 mg PO BEDTIME albuterol sulfate 90 mcg/actuation HFA aerosol inhaler 2 inh inhalation Q6H PRN (Reason: shortness of breath or wheezing) Qty: 6.7 0RF prednisone 20 mg tablet 20 mg PO BID 5 Days Qty: 10 0RF amoxicillin-pot clavulanate 875-125 mg tablet 1 tab PO BID 7 Days Qty: 14 0RF multivitamin Tablet 1 tab PO QAM Advair Diskus 250-50 mcg/dose blister with device 1 inh INHALATION BID Flonase Allergy Relief 50 mcg/actuation spray,suspension 2 spray intranasal DAILY PRN (Reason: Allergy Symptoms) Rx Instructions: administer into each nostril meclizine 25 mg tablet 25 mg PO QID PRN (Reason: dizziness) Qty: 14 0RF ketorolac 10 mg tablet 10 mg PO TID PRN (Reason: pain) Qty: 10 0RF methocarbamol 500 mg tablet 1,000 mg PO Q8H Qty: 30 0RF Discharge Orders: Discharge ED (Routine); Ordered 12/14/24 Ordered By: Preston Trevino Referrals: Evert Ocampo DO [Physician] - 4-7 days Rosa Maria Petersen DO [Primary Care Provider] - Discharge Diet: Advance as tolerated Discharge Activity: Resume usual activity Patient Instructions: Back Pain (ED) Print Language: Polish Coding Level of Care Code ED Occupational Medicine Officer for Mariaelena Krishnamurthy
[2024-12-14] MEDS: morphine 4 mg/mL SDV 1 mL IM (20:45)
[2024-12-14] MEDS: methocarbamol 750 mg Tablet 1500 MG PO (20:45)
[2024-12-14 21:00] VITALS: BP 145/81; PULSE 90; RESP 18; O2SAT 99
[2024-12-14 21:16] VITALS: BP 145/81; PULSE 90; O2SAT 99
--- NOTE | 2024-12-16 10:43 | DCPLANNER ---
Message sent to Ortho/Damaris for follow up-Patient presents here with low back pain likely muscular nature imaging here showed no acute findings he has no signs of epidural abscess or cord compression we will place him on pain meds we will give him follow-up with Dr. Garcia he is to return if worsening.
== END 2024-12-14 21:17 | disposition home or self-care (01) ==
PROVIDERS: Emergency Provider Emergency Medicine; PCP Family Medicine
DX: S39.012A Strain of muscle, fascia and tendon of lower back, initial encounter (principal); Z87.891 Personal history of nicotine dependence; X58.XXXA Exposure to other specified factors, initial encounter
CPT/HCPCS: 72100; 96372; 99284; J2270; J9999

== ENCOUNTER → 2024-12-29 14:42 | Outpatient (BNVA) | payer MEDICAID, SELFPAY | PROVIDERS: PCP Family Medicine; Visit Provider Orthopaedic Surgery | DX: M43.16 Spondylolisthesis, lumbar region (principal) | CPT/HCPCS: 72110 ==

== ENCOUNTER 2025-01-19 16:32 | Outpatient (RCR) | payer MEDICAID, SELFPAY | END 2025-01-20 23:59 | disposition home or self-care (01) | LOC: SPT 16:32 | PROVIDERS: Visit Provider Orthopaedic Surgery | DX: M54.50 Low back pain, unspecified (principal); G89.29 Other chronic pain | CPT/HCPCS: 97161 ==

== ENCOUNTER 2025-01-21 05:00 | Outpatient (RCR) | payer MEDICAID, SELFPAY | END 2025-02-20 23:55 | disposition home or self-care (01) | LOC: SPT 05:00 | PROVIDERS: Visit Provider Orthopaedic Surgery | DX: M54.50 Low back pain, unspecified (principal); G89.29 Other chronic pain | CPT/HCPCS: 97110 ==

== ENCOUNTER 2025-02-21 05:00 | Outpatient (RCR) | payer MEDICAID, SELFPAY | END 2025-03-22 23:59 | disposition home or self-care (01) | LOC: SPT 05:00 | PROVIDERS: Visit Provider Orthopaedic Surgery | DX: M54.50 Low back pain, unspecified (principal); G89.29 Other chronic pain | CPT/HCPCS: 97110 ==

== ENCOUNTER → 2025-08-28 12:05 | Outpatient (BNVA) | payer MEDICAID, SELFPAY | PROVIDERS: Visit Provider Emergency Medicine | DX: S89.91XA Unspecified injury of right lower leg, initial encounter (principal); W21.02XA Struck by soccer ball, initial encounter; Y93.66 Activity, soccer; M17.11 Unilateral primary osteoarthritis, right knee | CPT/HCPCS: 73562 ==

== ENCOUNTER 2025-09-10 14:12 | Emergency (ER) | payer MEDICAID, SELFPAY ==
[2025-09-10 14:15] VITALS: BP 180/94; PULSE 103; RESP 18; TEMP 36.4; O2SAT 97
--- NOTE | 2025-09-10 14:42 | ED_ITS ---
HPI - Extremity Injury (Lower) General: Chief Complaint: Extremity Injury, Lower Stated Complaint: R knee Pain Time Seen by Provider: 09/10/25 14:18 Source: patient Mode of arrival: ambulatory Limitations: no limitations History of Present Illness: Patient is a nice 55-year-old female presents to ED today with a complaint of continued right knee pain. He states he chronically has pain in the knee, p resent for several months, but states approximately 2 to 3 weeks ago he was kicking a soccer ball when he heard a pop in the knee and has had worsening pain since. He was originally seen at the walk-in clinic and had normal x-rays performed. He states pain has not improved. He does take [id number] Aleve which does seem to dull his discomfort. He ambulates with the help of a cane and has continued to be able to do this. He has not followed up with primary care. MD complaint: knee injury Onset (ago): week(s) Injury: Right: knee Place: home Severity: moderate Relieving factors: immobilization Exacerbating factors: weight bearing, movement and palpation Context: walking Associated symptoms: Reports no associated symptoms Other symptoms: none Related Data Home Medications ?Medication ?Instructions ?Recorded ?Confirmed losartan 100 mg tablet 100 mg PO BEDTIME 03/08/20 1 10/29/24 fluticasone 250 mcg-salmeterol 50 1 inh inhalation BID 03/14/23 08/28/25 mcg/dose blistr powdr for inhalation (Advair Diskus) fluticasone propionate 50 2 spray intranasal DAILY PRN 03/14/23 08/28/25 mcg/actuation nasal Allergy Symptoms spray,suspension (Flonase Allergy Relief) multivitamin 1 tab PO QAM 03/14/23 tirzepatide (weight loss) 2.5 mg SUBCUT 08/28/2508/28 mg/0.5 mL subcutaneous pen injector (Zepbound) Previous Rx's ?Medication ?Instructions ?Recorded albuterol sulfate 90 mcg/actuation 2 inh inhalation Q6 H PRN shortness 02/29/24 aerosol inhaler of breath or wheezing #6.7 g rossana miscellaneous medical supply 1 ea miscellaneous .prn # 1 ea 08/28/25 Allergies Allergy/AdvReac Type Severity Reaction Status Date / Time No Known Allergies Allergy Verified 08/28/25 11:55 Review of Systems Const: Denies: fever(s) Card: Denies: chest pain Resp: Denies: dyspnea Musc: Reports: joint pain (R knee); Denies: joint swelling, joint redness, joint warmth or muscle weakness Neuro: Denies: numbness in extremities, weakness in extremities, sensory changes or difficulty walking PFS ED PFSH: Medical History Morbid obesity with BMI of 45.0-49.9, adult Eustachian tube dysfunction Nasal congestion Asthma Surgical History History of appendectomy Social History Smoking and tobacco/nicotine status: never used tobacco/nicotine Second hand smoke exposure: Yes Alcohol intake: never Substance/Drug Use: never Physical Exam Const: COMMON NORMALS: no acute distress, patient oriented x3, no limitations, alert and well nourished NUTRITIONAL APPEARANCE: obese morbidly obese (BMI 47.9) ORIENTATION/CONSCIOUSNESS: Yes awake, Yes oriented to person, Yes oriented to place and Yes oriented to time Extremity: COMMON NORMALS: capillary refill normal, no clubbing, cyanosis or edema, no calf tenderness and no pedal edema GENERAL: Yes normal exam except as noted RIGHT LOWER EXTREMITY: Yes knee joint Right knee: Yes inspection (normal gross inspection), Yes palpation (mild tenderness to medial joint line), Yes ROM (normal flexion/extension) and Yes neurovascular exam (normal) Neuro: COMMON NORMALS: patient oriented x3, moves all extremities, no focal motor deficits, no sensory deficits noted and gait normal SENSORI UM/ORIENTATION: Yes alert, Yes oriented to person, Yes oriented to place and Yes oriented to time Course Vital Signs: Vital signs: Vital Signs Temperature 97.5 F L 09/10/25 14:15 Pulse Rate 103 H 09/10/25 14:15 Respiratory Rate 18 09/10/25 14:15 Blood Pressure 180/94 09/10/25 14:15 Pulse Oximetry 97 09/10/25 14:15 Oxygen Delivery Me thod Room Air 09/10/25 14:15 MDM - Extremity Injury (Lower) Medical Decision Making Patient here for continued right knee pain ever since hearing a pop 2 to 3 weeks ago after kicking a soccer ball. He has negative right knee XR on file from a few weeks ago when he was seen initially after injury. At this time, from an emergency standpoint, there is nothing to do emergently. Recommend he follow-up with primary care for further treatment which could include continued conservative therapies, MRI, physical therapy, referral to orthopedics, etc. No radiology studies performed this visit Discharge Plan Discharge Patient Disposition: Home Clinical Impression: Injury of knee, right Qualifiers: Encounter type: initial encounter Qualified Code(s): S89.91XA - Unspecified injury of right lower leg, initial encounter Condition: Stable Prescriptions: No Action losartan 100 mg tablet 100 mg PO BEDTIME albuterol sulfate 90 mcg/actuation HFA aerosol inhaler 2 inh inhalation Q6H PRN (Reason: shortness of breath or wheezing) Qty: 6.7 0RF Zepbound 2.5 mg/0.5 mL pen injector SUBCUT miscellaneous medical supply Misc 1 ea miscellaneous .prn Qty: 1 0RF Rx Instructions: knee immobilizer multivitamin Tablet 1 tab PO QAM Advair Diskus 250-50 mcg/dose blister with device 1 inh INHALATION BID Flonase Allergy Relief 50 mcg/actuation spray,suspension 2 spray intranasal DAILY PRN (Reason: Allergy Symptoms) Rx Instructions: administer into each nostril Discharge Orders: Discharge ED (Routine); Ordered 09/10/25 Ordered By: Abril Metcalf Patient Instructions: Patient Portal & Tera Instructions Activity Restrictions/Additional Instructions: As we discussed, I would like you to follow-up with your primary care provider as soon as possible for further evaluation of your knee pain. Further evaluation may include continued conservative therapy, physical therapy, MRI, etc. Print Language: Georgian Coding Level of Care Code ED Department Store Manager for Mariaelena Krishnamurthy
== END 2025-09-10 15:00 | disposition home or self-care (01) ==
PROVIDERS: Emergency Provider Physician Assistant
DX: S89.91XA Unspecified injury of right lower leg, initial encounter (principal); W21.02XA Struck by soccer ball, initial encounter; Y93.66 Activity, soccer
CPT/HCPCS: 99281